=== PATIENT | female | born 1930 | race Two or more races ===

== ENCOUNTER 2017-09-12 21:30 | Inpatient (IN) | payer MEDICARE, OTHER ==
[~2017-09-12] VITALS: Ht 152.4 cm; Wt 82.1 kg
[~2017-09-12 21:30] MED LIST: ACET325T53 PO; ATOR10TA PO; CANA300T PO; ESCI10TA PO; FOLI1TAB16 PO; FURO-151 PO; ISOS60TA4 PO; MAGN400T6 PO; METF10002 PO; NEBI5TAB8 PO; RIVA10TA PO; SPIR25TA PO
--- NOTE | 2017-09-12 21:40 | NUR ---
Pt BIB ambulance for SOB. Hx of COPD. Placed on monitor and pulse ox. EKG completed. ER MD and RT at bedside.
--- NOTE | 2017-09-12 21:45 | NUR ---
Unable to reconcile pt's home medications, unable to obtain information from pt or EMS.
[2017-09-12 22:22] LABS: CARBON DIOXIDE 33 mmol/L (21-32); CHLORIDE 98 mmol/L (98-107); CREATININE 1.3 mg/dL (0.6-1.3); GLUCOSE 130 mg/dL (74-106); POTASSIUM 3.4 mmol/L (3.5-5.1); UREA NITROGEN, BLOOD 38 mg/dL (7-18)
[2017-09-12 22:26] LABS: BASOPHILS % (AUTO) 0.2 % (0.0-2.0); EOSINOPHILS # (AUTO) 0.1 K/uL (0.0-0.7); EOSINOPHILS % (AUTO) 1.3 % (0.0-7.0); HEMOGLOBIN 15.4 g/dL (10.9-14.3); LYMPHOCYTES # (AUTO) 1.9 K/uL (20.0-40.0); LYMPHOCYTES % (AUTO) 24.8 % (20.5-51.5); MEAN CORPUSCULAR HEMOGLOBIN 29.8 uug (24.7-32.8); MEAN CORPUSCULAR HGB CONC 34 g/dL (32.3-35.6); MONOCYTES # (AUTO) 0.4 K/uL (2.0-10.0); MONOCYTES % (AUTO) 5.3 % (0.0-11.0); NEUTROPHILS # (AUTO) 5.2 K/uL (1.8-8.9); NEUTROPHILS % (AUTO) 68.4 % (38.5-71.5); PLATELET COUNT (AUTO) 137 K/uL (179-408); RED BLOOD CELL COUNT(AUTO) 5.17 MIL/uL (3.63-4.92); WHITE BLOOD COUNT (AUTO) 7.6 K/uL (3.8-11.8)
[2017-09-12 22:36] LABS: ABG BASE EXCESS 5.3 mmol/L; ABG HCO3 33.1 mmol/L; ABG PCO2 61.9 mmHg (35.0-45.0); ABG PH 7.346 (7.350-7.450); ABG PO2 84.8 mmHg (75.0-100.0); ABG SITE RIGHT RADIAL; ABG TOTAL HEMOGLOBIN 14.9 G/dL (12.0-16.0); COHb 1.6 % (0.5-1.5); MetHb 0.2 % (0.0-1.5); O2Hb 94.5 % (94.0-97.0)
[2017-09-12 22:40] LABS: ALANINE AMINOTRANSFERASE 13 U/L (14-59); ALKALINE PHOSPHATASE 63 U/L (50-136); ASPARTATE AMINOTRANSFERASE 16 U/L (15-37); BILIRUBIN,DIRECT 0.2 mg/dL (0.0-0.2); BILIRUBIN,TOTAL 0.9 mg/dL (0.2-1.0); TOTAL PROTEIN, SERUM 7.5 g/dL (6.4-8.2)
--- NOTE | 2017-09-12 22:58 | NUR ---
Jeremiah carreno in [facility] - 09/12/17 at 2259 by WALTER Call placed to [facility], Dr. Viramontes will be paged.
--- NOTE | 2017-09-12 22:59 | NUR ---
Call placed to [facility], Dr. Bone will be paged.
[2017-09-12] MEDS ORDERED: FUROSEMIDE 20 MG/2 ML VIAL IV ONE (23:00)
[2017-09-12] MEDS ORDERED: FUROSEMIDE 40 MG/4 ML VIAL ONE (23:19)
--- NOTE | 2017-09-12 23:29 | NUR ---
ER speaking w/ Epic
[2017-09-13] VITALS (7 sets, daily range): BP systolic 110–151; BP diastolic 53–87
[2017-09-13] MEDS ORDERED: POTASSIUM CHLORIDE 20 MEQ TAB.PRT.SR PO ONE
[2017-09-13] MEDS ORDERED: POTASSIUM CHLORIDE 20 MEQ TAB.PRT.SR ONE (00:16)
[2017-09-13] MEDS ORDERED: CLONIDINE HCL 0.1 MG TABLET PO PRN (01:15)
[2017-09-13] MEDS ORDERED: MORPHINE SULFATE 2 MG/1 ML DISP.SYRIN IV PRN (01:15)
[2017-09-13] MEDS ORDERED: ACETAMINOPHEN 325 MG TABLET PO PRN (01:15)
[2017-09-13] MEDS ORDERED: ONDANSETRON 4 MG/2 ML VIAL IV PRN (01:15)
[2017-09-13 01:17] LABS: *BILIRUBIN,URIN NEGATIVE (NEGATIVE); *BLOOD, URINE 1+ (NEGATIVE); *CLARITY,URINE SLIGHTLY CLOUDY (CLEAR); *COLOR,URINE YELLOW (YELLOW); *KETONES,URINE NEGATIVE (NEGATIVE); *PROTEIN,URINE NEGATIVE (NEGATIVE); *UROBILINOGEN,URINE 0.2 E.U./dl (NORMAL); LEUKOCYTE ESTERASE ,URINE TRACE (NEGATIVE); NITRITE, URINE POSITIVE (NEGATIVE); PH,URINE 5.5 (5.0-8.0)
[2017-09-13 01:22] LABS: UGLUCOSE 2+ (NEGATIVE)
[2017-09-13 01:24] LABS: BACTERIA,URINE MANY /HPF (NONE SEEN); SQUAMOUS EPITHELIAL CELL,UR FEW /HPF (NONE SEEN)
--- NOTE | 2017-09-13 01:41 | NUR ---
Report given to Mary ALDANA.
[2017-09-13] MEDS: ALBUTEROL SULFATE 1.25 MG/3 ML NEBU NEB PRN ×2 (02:50→08:27)
[2017-09-13] MEDS ORDERED: ALBUTEROL SULFATE 1.25 MG/3 ML NEBU ONE (03:05)
--- NOTE | 2017-09-13 03:15 | NUR ---
RECEIVED PATIENT TO [facility] FLOOR [id number]. PATIENT LABORED BREATHING, DENIES PAIN, BUT STATES SHE HAS TROUBLE BREATHING. PAGED DR COFFEY AT [id number] PATIENT CONTINUES WITH SOB AND IS STRUGGLING TO BREATHE. WHEEZING THROUGHOUT. CURRENTLY IN HIGH FOWLERS AND OXYGEN AT 2LPM VIA NC. CONTINUOUS PULSE OX MONITORING AT THIS TIME. SATURATION BETWEEN 91-94%. DR COFFEY STATES TO JUST WAIT AND MONITOR PATIENT- NO NEW ORDERS.
[2017-09-13 06:56] LABS: ALANINE AMINOTRANSFERASE 9 U/L (14-59); ALKALINE PHOSPHATASE 59 U/L (50-136); ASPARTATE AMINOTRANSFERASE 16 U/L (15-37); BILIRUBIN,TOTAL 0.7 mg/dL (0.2-1.0); CARBON DIOXIDE 35 mmol/L (21-32); CHLORIDE 100 mmol/L (98-107); CHOLESTEROL 148 mg/dL (<200); CREATININE 1.2 mg/dL (0.6-1.3); GLUCOSE 94 mg/dL (74-106); HDL CHOLESTEROL 78 mg/dL (40-60); MAGNESIUM 2.1 mg/dL (1.8-2.4); PHOSPHOROUS 5.1 mg/dL (2.5-4.9); POTASSIUM 3.8 mmol/L (3.5-5.1); TOTAL PROTEIN, SERUM 7.2 g/dL (6.4-8.2); TRIGLYCERIDES 78 MG/DL (30-150); UREA NITROGEN, BLOOD 37 mg/dL (7-18)
[2017-09-13 06:57] LABS: THYROID STIMULATING HORMONE 2.891 mIU/mL (0.358-3.740)
--- NOTE | 2017-09-13 08:00 | NUR ---
PT RECEIVED IN BED WITH HOB ELEVATED ON 3 L OXYGEN VIA NC. WHEEZING AND CRACKLES NOTED PATIENT BREATHES. MONITORING FOR ANY SOB. RESIDENT RECEIVED BREATHING TX PER RT
[2017-09-13] MEDS: PANTOPRAZOLE SODIUM 40 MG TABLET.DR PO SCH (08:11)
[2017-09-13] MEDS ORDERED: ASPIRIN EC 81 MG TABLET.DR PO SCH (09:00)
[2017-09-13] MEDS ORDERED: FUROSEMIDE 20 MG/2 ML VIAL IV SCH (09:00)
[2017-09-13 09:43] LABS: BASOPHILS % (AUTO) 0.4 % (0.0-2.0); EOSINOPHILS # (AUTO) 0.1 K/uL (0.0-0.7); EOSINOPHILS % (AUTO) 0.8 % (0.0-7.0); HEMATOCRIT 42.6 % (31.2-41.9); HEMOGLOBIN 14.3 g/dL (10.9-14.3); LYMPHOCYTES # (AUTO) 0.7 K/uL (20.0-40.0); LYMPHOCYTES % (AUTO) 10.1 % (20.5-51.5); MEAN CORPUSCULAR HEMOGLOBIN 29.8 uug (24.7-32.8); MEAN CORPUSCULAR HGB CONC 34 g/dL (32.3-35.6); MEAN CORPUSCULAR VOLUME 88.6 fL (75.5-95.3); MONOCYTES # (AUTO) 0.4 K/uL (2.0-10.0); MONOCYTES % (AUTO) 5.1 % (0.0-11.0); NEUTROPHILS # (AUTO) 5.8 K/uL (1.8-8.9); NEUTROPHILS % (AUTO) 83.6 % (38.5-71.5); PLATELET COUNT (AUTO) 143 K/uL (179-408); RED BLOOD CELL COUNT(AUTO) 4.81 MIL/uL (3.63-4.92)
[2017-09-13] MEDS ORDERED: IPRATROPIUM BROMIDE 0.5 MG/2.5 ML NEBU NEB PRN (10:00)
[2017-09-13] MEDS ORDERED: CEFTRIAXONE 1 G in IV NORMAL SALINE 50 ML IV SCH (10:00)
[2017-09-13] MEDS ORDERED: DEXTROSE 50% 50 ML DISP.SYRIN IV PRN (10:15)
[2017-09-13] MEDS: BLOOD SUGAR DIAGNOSTIC 1 EACH STRIP VI SCH ×3 (11:39→20:55)
[2017-09-13] MEDS: CEFTRIAXONE 1 G in IV NORMAL SALINE 50 ML IV SCH (12:03)
[2017-09-13] MEDS ORDERED: GUAIFENESIN/DEXTROMETHORPHAN 5 ML UDC PO PRN (14:15)
[2017-09-13] MEDS ORDERED: LEVOFLOXACIN 500 MG/D5W 500 MG in PREMIXED 1 EACH IV SCH (14:30)
[2017-09-13] MEDS: methylPREDNISolone SOD SUCC 40 MG/ML VIAL IV SCH ×2 (15:30→21:00)
[2017-09-13] MEDS ORDERED: LEVOFLOXACIN 500 MG/D5W 500 MG in PREMIXED 1 EACH IV ONE (16:00)
[2017-09-13] MEDS ORDERED: NORMAL SALINE IV SCH (16:00)
[2017-09-13] MEDS ORDERED: AZITHROMYCIN IV SCH (16:00)
[2017-09-13] MEDS: INSULIN REGULAR, HUMAN 300 UNIT/3 ML VIAL SQ PRN ×2 (16:24→20:56)
[2017-09-13] MEDS: ALBUTEROL SULFATE 1.25 MG/3 ML NEBU NEB SCH ×2 (17:38→19:31)
[2017-09-13] MEDS: IPRATROPIUM BROMIDE 0.5 MG/2.5 ML NEBU NEB SCH ×2 (17:39→19:30)
--- NOTE | 2017-09-13 17:58 | NUR ---
RESIDENT BREATHING CLOSELY MONITORED- NO S/S ACUTE DISTRESS. NO COMPLAINTS OF PAIN. CLIENT IS STILL WHEEZING, BUT NO SOB AND NO DESATURATION NOTED.
[2017-09-13] MEDS ORDERED: ESCITALOPRAM OXALATE 10 MG TABLET PO SCH (18:00)
[2017-09-13] MEDS: DOCUSATE SODIUM 100 MG CAPSULE PO SCH (21:00)
[2017-09-13] MEDS: ATORVASTATIN 10 MG TABLET PO SCH (21:00)
[2017-09-14] VITALS (7 sets, daily range): BP systolic 94–133; BP diastolic 50–80
[2017-09-14] MEDS ORDERED: FUROSEMIDE 20 MG/2 ML VIAL IV SCH
[2017-09-14] MEDS: FUROSEMIDE 40 MG/4 ML VIAL IV SCH ×4 (00:55→18:46)
[2017-09-14] MEDS: methylPREDNISolone SOD SUCC 40 MG/ML VIAL IV SCH ×2 (05:34→20:32)
[2017-09-14] MEDS: PANTOPRAZOLE SODIUM 40 MG TABLET.DR PO SCH (06:39)
[2017-09-14 06:40] LABS: BASOPHILS % (AUTO) 0.1 % (0.0-2.0); LYMPHOCYTES # (AUTO) 0.4 K/uL (20.0-40.0); MEAN CORPUSCULAR VOLUME 88.3 fL (75.5-95.3); MONOCYTES # (AUTO) 0.1 K/uL (2.0-10.0); NEUTROPHILS # (AUTO) 4.1 K/uL (1.8-8.9)
[2017-09-14] MEDS: BLOOD SUGAR DIAGNOSTIC 1 EACH STRIP VI SCH ×4 (06:42→20:59)
[2017-09-14 06:52] LABS: HEMATOCRIT 45.1 % (31.2-41.9); HEMOGLOBIN 15.1 g/dL (10.9-14.3); LYMPHOCYTES % (AUTO) 7.9 % (20.5-51.5); MEAN CORPUSCULAR HEMOGLOBIN 29.6 uug (24.7-32.8); MEAN CORPUSCULAR HGB CONC 34 g/dL (32.3-35.6); MONOCYTES % (AUTO) 1.7 % (0.0-11.0); NEUTROPHILS % (AUTO) 90.3 % (38.5-71.5); PLATELET COUNT (AUTO) 157 K/uL (179-408)
[2017-09-14 06:53] LABS: ALANINE AMINOTRANSFERASE 15 U/L (14-59); ALKALINE PHOSPHATASE 63 U/L (50-136); ASPARTATE AMINOTRANSFERASE 12 U/L (15-37); BILIRUBIN,TOTAL 0.8 mg/dL (0.2-1.0); CARBON DIOXIDE 35 mmol/L (21-32); CHLORIDE 100 mmol/L (98-107); CREATININE 1.3 mg/dL (0.6-1.3); GLUCOSE 143 mg/dL (74-106); MAGNESIUM 2.2 mg/dL (1.8-2.4); PHOSPHOROUS 3.9 mg/dL (2.5-4.9); POTASSIUM 3.7 mmol/L (3.5-5.1); TOTAL PROTEIN, SERUM 7.5 g/dL (6.4-8.2); UREA NITROGEN, BLOOD 33 mg/dL (7-18)
[2017-09-14 06:55] LABS: WHITE BLOOD COUNT (AUTO) 4.6 K/uL (3.8-11.8)
--- NOTE | 2017-09-14 07:59 | NUR ---
RECEIVED SHIFT REPORT FROM CIRCULAR STUFFER NURSE. PATIENT IS FARSI SPEAKING ONLY, STABLE CONDITION, NO S/S OF DISTRESS. BED ALARM ON, CALL LIGHT WITHIN REACH, SIDE RAILS UP X2.
[2017-09-14] MEDS: ALBUTEROL SULFATE 1.25 MG/3 ML NEBU NEB SCH ×4 (08:03→20:35)
[2017-09-14] MEDS: IPRATROPIUM BROMIDE 0.5 MG/2.5 ML NEBU NEB SCH ×4 (08:03→20:35)
[2017-09-14] MEDS: ISOSORBIDE MONONITRATE 60 MG TAB.SR.24H PO SCH (08:32)
[2017-09-14] MEDS: MAGNESIUM OXIDE 400 MG TABLET PO SCH (08:33)
[2017-09-14] MEDS: SPIRONOLACTONE 25 MG TABLET PO SCH (08:33)
[2017-09-14] MEDS: FOLIC ACID 1 MG TABLET PO SCH (08:33)
[2017-09-14] MEDS: CEFTRIAXONE 1 G in IV NORMAL SALINE 50 ML IV SCH (08:34)
[2017-09-14] MEDS: BYSTOLIC 5 MG PO SCH (08:38)
[2017-09-14] MEDS ORDERED: BYSTOLIC 5 MG PO SCH (09:00)
[2017-09-14] MEDS ORDERED: Medication Not On Formulary EA (Nebivolol Hcl (Bystolic) 5 MG) PO SCH (09:00)
[2017-09-14] MEDS: INSULIN REGULAR, HUMAN 300 UNIT/3 ML VIAL SQ PRN ×2 (11:55→17:20)
[2017-09-14] MEDS ORDERED: POTASSIUM CHLORIDE 20 MEQ TAB.PRT.SR PO ONE (12:00)
[2017-09-14] MEDS ORDERED: Medication Not On Formulary EA (Canagliflozin (Invokana) 300 MG) PO SCH (13:30)
[2017-09-14] MEDS ORDERED: Medication Not On Formulary EA (Metformin Hcl 1,000 MG) PO SCH (17:00)
[2017-09-14] MEDS: METFORMIN HCL 500 MG TABLET PO SCH (17:31)
[2017-09-14] MEDS: RIVAROXABAN 15 MG TABLET PO SCH (17:36)
--- NOTE | 2017-09-14 17:45 | NUR ---
PATIENT RECEIVED LASIX 40 MG AT 1200. WAS NOTIFIED BY LEGAL COMPLIANCE OFFICER THAT SHE VOIDED 3 TIMES IN THE RESTROOM. PATIENT COMPLAINED OF DIFFICULTY URINATING AT THIS TIME. BLADDER SCAN COMPLETED AND SHOWED 385 CC. NOTIFIED AND ORDERED TO HAVE ELLISON INSERTED.
[2017-09-14] MEDS ORDERED: RIVAROXABAN 10 MG TABLET PO SCH (18:00)
--- NOTE | 2017-09-14 18:16 | NUR ---
PATIENT RESTING COMFORTABLY IN BED AND FINISHED DINNER. NO SOB NOTED. NO S/S OF DISTRESS AT THIS TIME. PENDING SPUTUM CULTURE. PATIENT HAS NOT BEEN ABLE TO COUGH UP SPUTUM. BLOOD SUGAR MANAGED. BLOOD PRESSURE MONITORED AND STABLE. PATIENT O2 SATURATION WNL THROUGHOUT SHIFT. PT CONSULT TOLERATED. BED ALARM ON, SIDE RAILS UP X2, BED IN LOCKED/LOW POSITION, CALL LIGHT WITHIN REACH.
--- NOTE | 2017-09-14 18:33 | NUR ---
ELLISON CATHETER SUCCESSFULLY INSERTED AND IN PLACE, SECURE.
--- NOTE | 2017-09-14 19:00 | NUR ---
RECEIVED PATIENT IN BED, ALERT ORIENTED, SPEAK FARSI, STAFF ABLE TO INTERPRET FOR THE PATIENT, NO SOB NO CHEST PAIN, RHYTHM SINUS RHYTHM AT THIS TIME, ELLISON CATH PATENT DRAINING WITH YELLOW MARTÍN COLOR URINE IN MODERATE AMOUNT, CONT TO MONITOR.
[2017-09-14] MEDS: ATORVASTATIN 10 MG TABLET PO SCH (20:31)
[2017-09-14] MEDS: DOCUSATE SODIUM 100 MG CAPSULE PO SCH (20:31)
[2017-09-14] MEDS: LEVOFLOXACIN 250MG /D5W 250 MG in PREMIXED 1 EACH IV SCH (20:31)
[2017-09-15 00:08] VITALS: BP 111/62
[2017-09-15] MEDS: FUROSEMIDE 40 MG/4 ML VIAL IV SCH ×4 (00:36→17:26)
[2017-09-15 04:00] VITALS: BP 98/47
[2017-09-15] MEDS: PANTOPRAZOLE SODIUM 40 MG TABLET.DR PO SCH (05:38)
[2017-09-15] MEDS: BLOOD SUGAR DIAGNOSTIC 1 EACH STRIP VI SCH ×4 (05:41→20:30)
[2017-09-15 06:05] LABS: BASOPHILS % (AUTO) 0.1 % (0.0-2.0); HEMATOCRIT 41.8 % (31.2-41.9); HEMOGLOBIN 14.3 g/dL (10.9-14.3); LYMPHOCYTES # (AUTO) 0.4 K/uL (20.0-40.0); LYMPHOCYTES % (AUTO) 5.8 % (20.5-51.5); MEAN CORPUSCULAR HGB CONC 34 g/dL (32.3-35.6); MEAN CORPUSCULAR VOLUME 87.7 fL (75.5-95.3); MONOCYTES # (AUTO) 0.2 K/uL (2.0-10.0); MONOCYTES % (AUTO) 2.9 % (0.0-11.0); NEUTROPHILS # (AUTO) 6.3 K/uL (1.8-8.9); NEUTROPHILS % (AUTO) 91.2 % (38.5-71.5); PLATELET COUNT (AUTO) 152 K/uL (179-408); RED BLOOD CELL COUNT(AUTO) 4.77 MIL/uL (3.63-4.92); WHITE BLOOD COUNT (AUTO) 6.9 K/uL (3.8-11.8)
[2017-09-15 06:20] LABS: CARBON DIOXIDE 33 mmol/L (21-32); CHLORIDE 102 mmol/L (98-107); CREATININE 1.2 mg/dL (0.6-1.3); GLUCOSE 132 mg/dL (74-106); MAGNESIUM 2.1 mg/dL (1.8-2.4); PHOSPHOROUS 3.6 mg/dL (2.5-4.9); POTASSIUM 3.5 mmol/L (3.5-5.1); UREA NITROGEN, BLOOD 49 mg/dL (7-18)
[2017-09-15] MEDS: IPRATROPIUM BROMIDE 0.5 MG/2.5 ML NEBU NEB SCH ×4 (07:05→19:53)
[2017-09-15] MEDS: ALBUTEROL SULFATE 1.25 MG/3 ML NEBU NEB SCH ×4 (07:05→19:53)
--- NOTE | 2017-09-15 07:15 | NUR ---
RECEIVED SHIFT REPORT FROM SDE NURSE. PATIENT IN STABLE CONDITION, NO S/S OF DISTRESS. BED IN LOCKED/LOW POSITION, SIDE RAILS UP X2, BED ALARM ON, CALL LIGHT WITHIN REACH. ELLISON CATHETER IN PLACE AND FLOWING WELL. SAFETY/ COMFORT WILL BE PROVIDED.
[2017-09-15] MEDS: MAGNESIUM OXIDE 400 MG TABLET PO SCH (08:08)
[2017-09-15] MEDS: ISOSORBIDE MONONITRATE 60 MG TAB.SR.24H PO SCH (08:08)
[2017-09-15] MEDS: FOLIC ACID 1 MG TABLET PO SCH (08:08)
[2017-09-15] MEDS: METFORMIN HCL 500 MG TABLET PO SCH ×2 (08:08→17:26)
[2017-09-15] MEDS: SPIRONOLACTONE 25 MG TABLET PO SCH (08:08)
[2017-09-15] MEDS: BYSTOLIC 5 MG PO SCH (08:10)
[2017-09-15] MEDS: INVOKANA 300 MG PO SCH (08:10)
[2017-09-15] MEDS: CEFTRIAXONE 1 G in IV NORMAL SALINE 50 ML IV SCH (08:11)
[2017-09-15] MEDS: methylPREDNISolone SOD SUCC 40 MG/ML VIAL IV SCH ×2 (08:13→20:26)
[2017-09-15] MEDS: INSULIN REGULAR, HUMAN 300 UNIT/3 ML VIAL SQ PRN ×2 (08:27→17:03)
[2017-09-15 11:28] VITALS: BP 110/67
[2017-09-15 15:16] VITALS: BP 106/60
--- NOTE | 2017-09-15 17:49 | NUR ---
PATIENT RESTING COMFORTABLY IN BED AT THIS TIME AFTER FINISHING DINNER. VITAL SIGNS HAVE BEEN STABLE. BLOOD SUGAR MANAGED. NO PAIN EXPRESSED BY PATIENT. ELLISON INTACT, IN PLACE, FLOWING WELL. DIURETICS ADMINISTERED AND BLOOD SUGAR MONITORED. NO S/S OF DISTRESS, STABLE CONDITION. BED IN LOCKED/LOW POSITION, SIDE RAILS UP X2, CALL LIGHT WITHIN REACH. PATIENT UNDERSTANDS HOW TO USE CALL LIGHT WHEN ASSISTANCE IS NEEDED.
[2017-09-15] MEDS: RIVAROXABAN 15 MG TABLET PO SCH (18:04)
--- NOTE | 2017-09-15 18:41 | NUR ---
RAPID RESPONSE CALLED AT 1806 DUE TO PT PRESENTING WITH SHORTNESS OF BREATHE WITH FACIAL FLUSHING, WAS UNABLE TO VERBALIZE ANYTHING BECAUSE OF THE SHORTNESS OF BREATH. VITAL SIGNS IMMEDIATELY TAKEN: BP 115/80; HR 105; O2SAT 93% 3L NC; RR 22; T 98.7. PATIENT PLACED ON THE ENVIRONMENTAL LABORATORY TECHNICIAN AND NO SIGNIFICANT FINDINGS. SHORTNESS OF BREATH BEGAN TO IMPROVE. RAPID RESPONSE ENDED AT 1813 AND VITAL SIGNS: BP 119/74; HR 108; O2SAT 95%; RR 18. LANGUAGE BARRIER - PATIENT FARSI SPEAKING ONLY. PATIENT CURRENTLY IN STABLE CONDITION, NO S/S OF RESPIRATORY DISTRESS. WILL INFORM CS ASSOCIATE NURSE OF OCCURRENCE AND TO CLOSELY MONITOR PATIENT.
--- NOTE | 2017-09-15 19:30 | NUR ---
PT RECEIVED IN BED, AWAKE. A/OX3. FARSI SPEAKING, ABLE TO MAKE NEEDS KNOWN. V/S STABLE. IN NO ACUTE DISTRESS. NO C/O PAIN AT THIS TIME. PT STATES IV SITE WAS SWOLLEN AND RED WITH IV INFUSION DURING DAYSHIFT. REMOVED IV. IV PLACEMENT PENDING AT THIS TIME. ON 3LNC, TOLERATING WELL. ELLISON INTACT AND PATENT. HOB ELEVATED. SAFETY MEASURES IMPLEMENTED. BED ALARM SET. CALL LIGHT WITHIN REACH.
[2017-09-15 20:00] VITALS: BP 102/55
[2017-09-15] MEDS: ATORVASTATIN 10 MG TABLET PO SCH (20:26)
[2017-09-15] MEDS: LEVOFLOXACIN 250MG /D5W 250 MG in PREMIXED 1 EACH IV SCH (20:26)
[2017-09-15] MEDS: DOCUSATE SODIUM 100 MG CAPSULE PO SCH (20:27)
--- NOTE | 2017-09-15 21:45 | NUR ---
UNABLE TO INSERT PERIPHERAL IV. AWARE. IV MEDICATIONS CHANGED TO PO
[2017-09-15] MEDS: LEVOFLOXACIN 250 MG TABLET PO SCH (21:58)
[2017-09-15] MEDS ORDERED: LEVOFLOXACIN 250 MG TABLET ONE (22:15)
[2017-09-15] MEDS: FUROSEMIDE 40 MG TABLET PO SCH (23:00)
[2017-09-15] MEDS ORDERED: FUROSEMIDE 40 MG TABLET ONE (23:15)
[2017-09-16 04:44] VITALS: BP 116/62
[2017-09-16 06:01] LABS: BASOPHILS % (AUTO) 0.1 % (0.0-2.0); EOSINOPHILS % (AUTO) 0.1 % (0.0-7.0); HEMATOCRIT 41.8 % (31.2-41.9); HEMOGLOBIN 14.2 g/dL (10.9-14.3); LYMPHOCYTES # (AUTO) 0.7 K/uL (20.0-40.0); LYMPHOCYTES % (AUTO) 10.1 % (20.5-51.5); MEAN CORPUSCULAR HEMOGLOBIN 29.7 uug (24.7-32.8); MEAN CORPUSCULAR HGB CONC 34 g/dL (32.3-35.6); MEAN CORPUSCULAR VOLUME 87.6 fL (75.5-95.3); MONOCYTES # (AUTO) 0.4 K/uL (2.0-10.0); MONOCYTES % (AUTO) 6.5 % (0.0-11.0); NEUTROPHILS # (AUTO) 5.4 K/uL (1.8-8.9); NEUTROPHILS % (AUTO) 83.2 % (38.5-71.5); PLATELET COUNT (AUTO) 156 K/uL (179-408); RED BLOOD CELL COUNT(AUTO) 4.77 MIL/uL (3.63-4.92); WHITE BLOOD COUNT (AUTO) 6.4 K/uL (3.8-11.8)
[2017-09-16] MEDS ORDERED: FUROSEMIDE 40 MG TABLET ONE (06:03)
[2017-09-16] MEDS: PANTOPRAZOLE SODIUM 40 MG TABLET.DR PO SCH (06:07)
[2017-09-16] MEDS: FUROSEMIDE 40 MG TABLET PO SCH (06:07)
--- NOTE | 2017-09-16 06:15 | NUR ---
END OF SHIFT NOTES. PT SLEPT WELL THROUGHOUT SHIFT. IN STABLE CONDITION. NO IV IN PLACE, MD AWARE. ELLISON INTACT AND PATENT. URINE OUTPUT WNL. BG CONTROLLED. HOB ELEVATED. ALL NEEDS ATTENDED. SAFETY MAINTAINED. CALL LIGHT WITHIN REACH.
[2017-09-16] MEDS: BLOOD SUGAR DIAGNOSTIC 1 EACH STRIP VI SCH ×4 (06:22→20:49)
--- NOTE | 2017-09-16 07:27 | NUR ---
LEVAQUIN WAS REMOVED FROM [facility] 07/16/18 AT 2215. LASIX REMOVED FROM [facility] 09/16/17 AT 0603.
[2017-09-16] MEDS: ALBUTEROL SULFATE 1.25 MG/3 ML NEBU NEB SCH ×4 (07:33→19:19)
[2017-09-16] MEDS: IPRATROPIUM BROMIDE 0.5 MG/2.5 ML NEBU NEB SCH ×4 (07:33→19:18)
[2017-09-16] MEDS: SPIRONOLACTONE 25 MG TABLET PO SCH (08:08)
[2017-09-16] MEDS: CEPHALEXIN MONOHYDRATE 500 MG CAPSULE PO SCH ×2 (08:09→20:45)
[2017-09-16] MEDS: INVOKANA 300 MG PO SCH (08:10)
[2017-09-16] MEDS: BYSTOLIC 5 MG PO SCH (08:10)
[2017-09-16] MEDS: MAGNESIUM OXIDE 400 MG TABLET PO SCH (08:10)
[2017-09-16] MEDS: METFORMIN HCL 500 MG TABLET PO SCH ×2 (08:10→17:01)
[2017-09-16] MEDS: FOLIC ACID 1 MG TABLET PO SCH (08:10)
[2017-09-16] MEDS: ISOSORBIDE MONONITRATE 60 MG TAB.SR.24H PO SCH (08:16)
[2017-09-16 08:48] LABS: ALANINE AMINOTRANSFERASE 12 U/L (14-59); ALKALINE PHOSPHATASE 41 U/L (50-136); ASPARTATE AMINOTRANSFERASE 9 U/L (15-37); BILIRUBIN,TOTAL 0.4 mg/dL (0.2-1.0); CARBON DIOXIDE 29 mmol/L (21-32); CHLORIDE 101 mmol/L (98-107); CREATININE 1.6 mg/dL (0.6-1.3); GLUCOSE 100 mg/dL (74-106); MAGNESIUM 2.3 mg/dL (1.8-2.4); PHOSPHOROUS 3.4 mg/dL (2.5-4.9); POTASSIUM 3.7 mmol/L (3.5-5.1); TOTAL PROTEIN, SERUM 6.6 g/dL (6.4-8.2); UREA NITROGEN, BLOOD 65 mg/dL (7-18)
[2017-09-16] MEDS: methylPREDNISolone SOD SUCC 40 MG/ML VIAL IV SCH ×2 (09:00→20:49)
--- NOTE | 2017-09-16 10:01 | NUR ---
unable to insert peripheral IV. Nurse practitioner notified. Order for midline obtained. nursing silverware supervisor notified.
--- NOTE | 2017-09-16 10:20 | NUR ---
MIDLINE INSERTED 20 GAUGE RIGHT UPPER ARM. PT SHOWS NO SIGNS OF RESPIRATORY DISTRESS AT THIS TIME. PT V/S STABLE.
--- NOTE | 2017-09-16 10:34 | NUR ---
RAFAELA PULLED FROM [facility] 09/15 AT [id number]
[2017-09-16 11:38] VITALS: BP 100/54
[2017-09-16] MEDS ORDERED: MIRALAX 17 GM POWD.PACK PO ONE (14:30)
[2017-09-16] MEDS ORDERED: MIRALAX 17 GM POWD.PACK PO PRN (14:30)
--- NOTE | 2017-09-16 15:06 | NUR ---
PT REFUSED MIRALAX B/C SHE VERBALIZED THAT SHE HAD "POOP" TODAY. PT DESCRIBES BM SMALL.
[2017-09-16 15:32] VITALS: BP 103/64
[2017-09-16] MEDS: RIVAROXABAN 15 MG TABLET PO SCH (17:04)
--- NOTE | 2017-09-16 18:29 | NUR ---
PT SHOWS NO SIGNS OF RESPIRATORY DISTRESS OR SOB. PT AMBULATED AROUND THE UNIT TODAY. PT BED AT LOWEST LOCKED POSITION, NON SKID SOCKS ON PT FEET. PT MEDICATION COMPLIANT. MIDLINE INSERTED 20 GAUGE IN RIGHT UPPER ARM, INTACT. PT HAD ONE SMALL BM AND REFUSED MIRALAX. CONTINUE TO MONITOR PT.
[2017-09-16 20:08] VITALS: BP 102/62
[2017-09-16] MEDS: LEVOFLOXACIN 250 MG TABLET PO SCH (20:48)
[2017-09-16] MEDS: DOCUSATE SODIUM 100 MG CAPSULE PO SCH (20:48)
[2017-09-16] MEDS: SENNOSIDES 1 TABLET PO SCH (20:48)
[2017-09-16] MEDS: ATORVASTATIN 10 MG TABLET PO SCH (20:48)
--- NOTE | 2017-09-16 23:04 | NUR ---
VENOUS DOPPLER OF BLE DONE AT BEDSIDE. PATIENT TOLERATE PROCEDURE WELL. NO DISTRESS NOTED. PT LAYING COMFORTABLY IN BED AT THIS TIME.
[2017-09-17 05:59] VITALS: BP 105/54
[2017-09-17 06:41] LABS: ALANINE AMINOTRANSFERASE 10 U/L (14-59); ALKALINE PHOSPHATASE 47 U/L (50-136); ASPARTATE AMINOTRANSFERASE 6 U/L (15-37); BILIRUBIN,TOTAL 0.5 mg/dL (0.2-1.0); CARBON DIOXIDE 33 mmol/L (21-32); CHLORIDE 101 mmol/L (98-107); CREATINE KINASE, TOTAL 20 U/L (26-192); GLUCOSE 132 mg/dL (74-106); MAGNESIUM 2.3 mg/dL (1.8-2.4); POTASSIUM 4.1 mmol/L (3.5-5.1); TOTAL PROTEIN, SERUM 6.6 g/dL (6.4-8.2)
[2017-09-17 06:49] LABS: HEMATOCRIT 43.5 % (31.2-41.9); HEMOGLOBIN 14.6 g/dL (10.9-14.3); LYMPHOCYTES # (AUTO) 0.4 K/uL (20.0-40.0); LYMPHOCYTES % (AUTO) 8.5 % (20.5-51.5); MEAN CORPUSCULAR HEMOGLOBIN 29.4 uug (24.7-32.8); MEAN CORPUSCULAR HGB CONC 34 g/dL (32.3-35.6); MEAN CORPUSCULAR VOLUME 87.7 fL (75.5-95.3); MONOCYTES # (AUTO) 0.2 K/uL (2.0-10.0); MONOCYTES % (AUTO) 3.5 % (0.0-11.0); NEUTROPHILS # (AUTO) 4.2 K/uL (1.8-8.9); PLATELET COUNT (AUTO) 148 K/uL (179-408); RED BLOOD CELL COUNT(AUTO) 4.96 MIL/uL (3.63-4.92)
[2017-09-17] MEDS: PANTOPRAZOLE SODIUM 40 MG TABLET.DR PO SCH (06:50)
[2017-09-17] MEDS: BLOOD SUGAR DIAGNOSTIC 1 EACH STRIP VI SCH ×4 (06:52→21:06)
[2017-09-17 07:00] LABS: UREA NITROGEN, BLOOD 57 mg/dL (7-18)
[2017-09-17 07:01] LABS: CREATININE 1.3 mg/dL (0.6-1.3)
[2017-09-17 07:04] LABS: WHITE BLOOD COUNT (AUTO) 4.7 K/uL (3.8-11.8)
[2017-09-17] MEDS: IPRATROPIUM BROMIDE 0.5 MG/2.5 ML NEBU NEB SCH ×4 (07:18→19:10)
[2017-09-17] MEDS: ALBUTEROL SULFATE 1.25 MG/3 ML NEBU NEB SCH ×4 (07:18→19:10)
[2017-09-17] MEDS: CEPHALEXIN MONOHYDRATE 500 MG CAPSULE PO SCH ×2 (08:00→21:06)
[2017-09-17] MEDS: METFORMIN HCL 500 MG TABLET PO SCH ×2 (08:00→17:40)
[2017-09-17] MEDS: FOLIC ACID 1 MG TABLET PO SCH (08:00)
[2017-09-17] MEDS: methylPREDNISolone SOD SUCC 40 MG/ML VIAL IV SCH (08:00)
[2017-09-17] MEDS: INVOKANA 300 MG PO SCH (08:01)
[2017-09-17] MEDS: SPIRONOLACTONE 25 MG TABLET PO SCH (08:01)
[2017-09-17] MEDS: MAGNESIUM OXIDE 400 MG TABLET PO SCH (08:01)
[2017-09-17] MEDS: ISOSORBIDE MONONITRATE 60 MG TAB.SR.24H PO SCH (08:01)
[2017-09-17] MEDS: BYSTOLIC 5 MG PO SCH (08:01)
[2017-09-17] MEDS: FUROSEMIDE 40 MG TABLET PO SCH ×2 (09:31→17:40)
[2017-09-17 11:26] VITALS: BP 103/65
[2017-09-17] MEDS: INSULIN REGULAR, HUMAN 300 UNIT/3 ML VIAL SQ PRN ×3 (12:08→21:10)
[2017-09-17 15:38] VITALS: BP 116/59
[2017-09-17] MEDS ORDERED: FUROSEMIDE 40 MG TABLET PO SCH (17:00)
[2017-09-17] MEDS: RIVAROXABAN 15 MG TABLET PO SCH (17:41)
--- NOTE | 2017-09-17 18:38 | NUR ---
PT SITTING IN ROOM, FAMILY AT BEDSIDE. PT SHOWS NO SIGNS OF DISTRESS, SOB, OR PAIN. PT ELLISON CATHETER WAS DISCONTINUED TODAY PER KATHERYN Bravo. PT HAS URINATED 2 TIMES SINCE ELLISON CATHETER REMOVAL.
[2017-09-17 20:24] VITALS: BP 128/75
[2017-09-17] MEDS: DOCUSATE SODIUM 100 MG CAPSULE PO SCH (21:06)
[2017-09-17] MEDS: LACTOBACILLUS RHAMNOSUS GG 1 EACH CAPSULE PO SCH (21:06)
[2017-09-17] MEDS: ATORVASTATIN 10 MG TABLET PO SCH (21:06)
[2017-09-17] MEDS: SENNOSIDES 1 TABLET PO SCH (21:06)
[2017-09-17] MEDS: LEVOFLOXACIN 250 MG TABLET PO SCH (21:06)
[2017-09-18 04:33] VITALS: BP 122/65
[2017-09-18] MEDS: PANTOPRAZOLE SODIUM 40 MG TABLET.DR PO SCH (06:11)
--- NOTE | 2017-09-18 06:38 | NUR ---
PATIENT LAYING IN BED AT THIS TIME. COMPLIANT WITH MEDICATIONS. BLOOD SUGAR WITHIN DESIRED RANGE. PATIENT IS HOPEFUL FOR DISCHARGE TODAY. CURRENTLY ON 1L O2 VIA NC. DENIES CHEST PAIN OR SOB. SLEPT THROUGHOUT THE NIGHT WITHOUT INCIDENT. ABLE TO USE CALL LIGHT FOR ASSISTANCE. BED LOCKED AND IN LOW POSITION WITH CALL LIGHT WITHIN REACH.
[2017-09-18] MEDS: BLOOD SUGAR DIAGNOSTIC 1 EACH STRIP VI SCH ×4 (06:49→21:36)
[2017-09-18 06:54] LABS: ALANINE AMINOTRANSFERASE 9 U/L (14-59); ALKALINE PHOSPHATASE 42 U/L (50-136); ASPARTATE AMINOTRANSFERASE 8 U/L (15-37); BILIRUBIN,TOTAL 0.6 mg/dL (0.2-1.0); CARBON DIOXIDE 33 mmol/L (21-32); CHLORIDE 100 mmol/L (98-107); CREATININE 1.5 mg/dL (0.6-1.3); GLUCOSE 101 mg/dL (74-106); MAGNESIUM 1.9 mg/dL (1.8-2.4); PHOSPHOROUS 3.1 mg/dL (2.5-4.9); POTASSIUM 3.4 mmol/L (3.5-5.1); TOTAL PROTEIN, SERUM 6.5 g/dL (6.4-8.2)
[2017-09-18 07:05] LABS: BASOPHILS % (AUTO) 0.1 % (0.0-2.0); EOSINOPHILS % (AUTO) 0.4 % (0.0-7.0); HEMOGLOBIN 14.3 g/dL (10.9-14.3); LYMPHOCYTES # (AUTO) 0.8 K/uL (20.0-40.0); LYMPHOCYTES % (AUTO) 16.1 % (20.5-51.5); MEAN CORPUSCULAR HEMOGLOBIN 29.3 uug (24.7-32.8); MEAN CORPUSCULAR HGB CONC 33 g/dL (32.3-35.6); MEAN CORPUSCULAR VOLUME 87.8 fL (75.5-95.3); MONOCYTES # (AUTO) 0.4 K/uL (2.0-10.0); MONOCYTES % (AUTO) 8.3 % (0.0-11.0); NEUTROPHILS # (AUTO) 3.8 K/uL (1.8-8.9); NEUTROPHILS % (AUTO) 75.1 % (38.5-71.5); PLATELET COUNT (AUTO) 149 K/uL (179-408)
[2017-09-18 07:24] LABS: UREA NITROGEN, BLOOD 50 mg/dL (7-18)
[2017-09-18] MEDS: ALBUTEROL SULFATE 1.25 MG/3 ML NEBU NEB SCH ×4 (08:09→19:27)
[2017-09-18] MEDS: IPRATROPIUM BROMIDE 0.5 MG/2.5 ML NEBU NEB SCH ×4 (08:09→19:27)
[2017-09-18] MEDS: ISOSORBIDE MONONITRATE 60 MG TAB.SR.24H PO SCH (09:00)
--- NOTE | 2017-09-18 09:00 | NUR ---
awake alert and oriented, speaks Farsi, denies of pain, on 1l/nc, call light within reach
[2017-09-18] MEDS: methylPREDNISolone SOD SUCC 40 MG/ML VIAL IV SCH (09:08)
[2017-09-18] MEDS: LACTOBACILLUS RHAMNOSUS GG 1 EACH CAPSULE PO SCH ×2 (09:08→21:30)
[2017-09-18] MEDS: SPIRONOLACTONE 25 MG TABLET PO SCH (09:08)
[2017-09-18] MEDS: FOLIC ACID 1 MG TABLET PO SCH (09:08)
[2017-09-18] MEDS: METFORMIN HCL 500 MG TABLET PO SCH ×2 (09:08→17:32)
[2017-09-18] MEDS: FUROSEMIDE 40 MG TABLET PO SCH ×2 (09:09→17:32)
[2017-09-18] MEDS: CEPHALEXIN MONOHYDRATE 500 MG CAPSULE PO SCH ×2 (09:09→21:30)
[2017-09-18] MEDS: MAGNESIUM OXIDE 400 MG TABLET PO SCH (09:10)
[2017-09-18] MEDS: INVOKANA 300 MG PO SCH (09:11)
[2017-09-18] MEDS ORDERED: POTASSIUM CHLORIDE 20 MEQ TAB.PRT.SR PO ONE (10:30)
[2017-09-18 10:49] VITALS: BP 119/50
[2017-09-18 12:19] LABS: *BILIRUBIN,URIN NEGATIVE (NEGATIVE); *BLOOD, URINE 3+ (NEGATIVE); *CLARITY,URINE CLEAR (CLEAR); *COLOR,URINE YELLOW (YELLOW); *KETONES,URINE NEGATIVE (NEGATIVE); *PROTEIN,URINE NEGATIVE (NEGATIVE); *UROBILINOGEN,URINE 0.2 E.U./dl (NORMAL); LEUKOCYTE ESTERASE ,URINE NEGATIVE (NEGATIVE); NITRITE, URINE NEGATIVE (NEGATIVE); PH,URINE 5.5 (5.0-8.0)
[2017-09-18 12:22] LABS: UGLUCOSE 2+ (NEGATIVE)
[2017-09-18] MEDS: INSULIN REGULAR, HUMAN 300 UNIT/3 ML VIAL SQ PRN ×2 (12:29→17:34)
[2017-09-18 12:52] LABS: BACTERIA,URINE FEW /HPF (NONE SEEN); RBC,URINE 20-50 /HPF (0-3); SQUAMOUS EPITHELIAL CELL,UR FEW /HPF (NONE SEEN)
[2017-09-18 12:54] LABS: *CREATININE,URINE 23.9 mg/dL (30-125); *URINE TOTAL PROTEIN RANDOM 9.1 mg/dL (<150/24HR)
--- NOTE | 2017-09-18 14:00 | NUR ---
no BM for 2 days- given laxative as ordered, ambulated in the hallway with walker
[2017-09-18] MEDS ORDERED: methylPREDNISolone 1 PACK TAB.DS.PK [4MG TAB] PO ONE (14:15)
[2017-09-18] MEDS ORDERED: BISACODYL 5 MG TABLET.DR PO ONE (14:15)
[2017-09-18 15:32] VITALS: BP 107/71
[2017-09-18] MEDS: RIVAROXABAN 15 MG TABLET PO SCH (17:33)
--- NOTE | 2017-09-18 19:00 | NUR ---
no distress noted, all needs attended and met, call light within reach, had BM this shift
[2017-09-18 20:10] VITALS: BP 111/64
[2017-09-18] MEDS: ATORVASTATIN 10 MG TABLET PO SCH (21:30)
[2017-09-18] MEDS: DOCUSATE SODIUM 100 MG CAPSULE PO SCH (21:30)
[2017-09-18] MEDS: SENNOSIDES 1 TABLET PO SCH (21:31)
[2017-09-19] MEDS: PANTOPRAZOLE SODIUM 40 MG TABLET.DR PO SCH (06:04)
[2017-09-19 06:30] VITALS: BP 110/75
--- NOTE | 2017-09-19 06:44 | NUR ---
PT SLEPT THROUGHOUT THE SHIFT, PT SHOWS NO SIGNS OF DISTRESS. PT VITAL SIGNS WITHIN NORMAL LIMIT. CALL LIGHT WITHIN REACH . BED ALARM ON AND IN LOW POSITION. ALL PRESCRIBED MEDICATION GIVEN TO THE PT. PT TOLERATED WELL THE MEDICATION. SAFETY AND COMFORT PROVIDED.
[2017-09-19] MEDS: BLOOD SUGAR DIAGNOSTIC 1 EACH STRIP VI SCH ×2 (06:52→11:32)
[2017-09-19 07:12] LABS: BASOPHILS % (AUTO) 0.1 % (0.0-2.0); EOSINOPHILS % (AUTO) 0.7 % (0.0-7.0); HEMATOCRIT 44.2 % (31.2-41.9); HEMOGLOBIN 14.9 g/dL (10.9-14.3); LYMPHOCYTES % (AUTO) 19.1 % (20.5-51.5); MEAN CORPUSCULAR HEMOGLOBIN 29.5 uug (24.7-32.8); MEAN CORPUSCULAR HGB CONC 34 g/dL (32.3-35.6); MEAN CORPUSCULAR VOLUME 87.7 fL (75.5-95.3); MONOCYTES # (AUTO) 0.4 K/uL (2.0-10.0); MONOCYTES % (AUTO) 7.4 % (0.0-11.0); NEUTROPHILS % (AUTO) 72.7 % (38.5-71.5); PLATELET COUNT (AUTO) 134 K/uL (179-408); RED BLOOD CELL COUNT(AUTO) 5.04 MIL/uL (3.63-4.92); WHITE BLOOD COUNT (AUTO) 5.5 K/uL (3.8-11.8)
[2017-09-19] MEDS: IPRATROPIUM BROMIDE 0.5 MG/2.5 ML NEBU NEB SCH ×4 (07:18→14:51)
[2017-09-19] MEDS: ALBUTEROL SULFATE 1.25 MG/3 ML NEBU NEB SCH ×4 (07:18→14:51)
[2017-09-19 07:44] LABS: ALANINE AMINOTRANSFERASE 11 U/L (14-59); ALKALINE PHOSPHATASE 40 U/L (50-136); ASPARTATE AMINOTRANSFERASE < 5 U/L (15-37); BILIRUBIN,TOTAL 0.5 mg/dL (0.2-1.0); CARBON DIOXIDE 33 mmol/L (21-32); CHLORIDE 100 mmol/L (98-107); CREATININE 1.3 mg/dL (0.6-1.3); GLUCOSE 93 mg/dL (74-106); MAGNESIUM 1.9 mg/dL (1.8-2.4); PHOSPHOROUS 3.2 mg/dL (2.5-4.9); POTASSIUM 3.7 mmol/L (3.5-5.1); TOTAL PROTEIN, SERUM 6.3 g/dL (6.4-8.2); UREA NITROGEN, BLOOD 51 mg/dL (7-18)
[2017-09-19 08:14] LABS: ABG BASE EXCESS 8.2 mmol/L; ABG HCO3 33.2 mmol/L; ABG PCO2 46.4 mmHg (35.0-45.0); ABG PH 7.472 (7.350-7.450); ABG PO2 49.9 mmHg (75.0-100.0); ABG SITE RIGHT RADIAL; ABG TOTAL HEMOGLOBIN 15.3 G/dL (12.0-16.0); COHb 1.9 % (0.5-1.5); MetHb 0.1 % (0.0-1.5); O2Hb 84.6 % (94.0-97.0); VENT MODE Nasal Cannula
[2017-09-19] MEDS: CEPHALEXIN MONOHYDRATE 500 MG CAPSULE PO SCH (08:16)
[2017-09-19] MEDS: LACTOBACILLUS RHAMNOSUS GG 1 EACH CAPSULE PO SCH (08:16)
[2017-09-19] MEDS: METFORMIN HCL 500 MG TABLET PO SCH (08:16)
[2017-09-19] MEDS: SPIRONOLACTONE 25 MG TABLET PO SCH (08:17)
[2017-09-19] MEDS: FOLIC ACID 1 MG TABLET PO SCH (08:17)
[2017-09-19] MEDS: MAGNESIUM OXIDE 400 MG TABLET PO SCH (08:17)
[2017-09-19] MEDS: FUROSEMIDE 40 MG TABLET PO SCH (08:17)
[2017-09-19] MEDS: methylPREDNISolone SOD SUCC 40 MG/ML VIAL IV SCH (08:17)
[2017-09-19] MEDS: ISOSORBIDE MONONITRATE 60 MG TAB.SR.24H PO SCH (08:18)
[2017-09-19] MEDS: INVOKANA 300 MG PO SCH (09:23)
[2017-09-19 10:12] LABS: A/G RATIO 1.3 (0.7-1.7); ALBUMIN 3.5 g/dL (2.9-4.4); ALPHA-1-GLOBULIN 0.2 g/dL (0.0-0.4); ALPHA-2-GLOBULIN 0.9 g/dL (0.4-1.0); BETA GLOBULIN 0.9 g/dL (0.7-1.3); GAMMA GLOBULIN 0.7 g/dL (0.4-1.8); GLOBULIN, TOTAL 2.7 g/dL (2.2-3.9); M-SPIKE Not Observed g/dL (Not Observed)
[2017-09-19 10:41] VITALS: BP 106/62
[2017-09-19] MEDS ORDERED: METH4TAB21 GT (13:55)
[2017-09-19] MEDS ORDERED: CEPH500C2 PO (13:55)
[2017-09-19] MEDS ORDERED: LACT1CAP57 PO (13:55)
[2017-09-19] MEDS ORDERED: DOCU100C36 PO (13:55)
[2017-09-19] MEDS ORDERED: FURO40TA5 PO (13:55)
--- NOTE | 2017-09-19 15:14 | NUR ---
Patient being discharge home with . Patient has [employer] P: [phone], F: [phone]. Inna is the pet supplies salesperson. MD discharging patient home with [facility]: 02 patient already has at home and PT Evaluation. Patient will follow up with PCP in one week.
[2017-09-19 15:17] VITALS: BP 105/62
--- NOTE | 2017-09-19 15:47 | NUR ---
PT D/C WITH SHOWS NO SIGNS OF RESPIRATORY DISTRESS OR SOB.OXYGEN SATURATION OF 95% ON ROOM AIR. PT MIDLINE REMOVED. CIRCUMFERENCE OF ARM 1 INCH ABOVE INSERTION AREA IS 24 INCHES. MIDLINE CATHETER INTACT, REMOVED COMPLETELY. PT D/C WITH ALL VALUABLES, BELONGINGS, EXIT-CARE PACKET, AND HOME MEDICATIONS. PT STATES, " WE HAVE OXYGEN AT HOME".
[2017-09-19 16:18] VITALS: BP 105/62
== END 2017-09-19 15:47 | disposition home or self-care (01) | DRG 698 ==
LOC: ER 21:31 → TELE 09-13 01:45 → MED 09-15 13:05
PROVIDERS: ADMIT Internal Medicine; ATTEND Internal Medicine
PROC: 05H533Z Insertion of Infusion Device into Right Subclavian Vein, Percutaneous Approach (ICD-10-PCS; principal; 2017-09-16)
DX: E11.22 Type 2 diabetes mellitus with diabetic chronic kidney disease (principal); I50.33 Acute on chronic diastolic (congestive) heart failure; J96.21 Acute and chronic respiratory failure with hypoxia; N17.0 Acute kidney failure with tubular necrosis; E44.0 Moderate protein-calorie malnutrition; E11.65 Type 2 diabetes mellitus with hyperglycemia; D69.6 Thrombocytopenia, unspecified; D75.1 Secondary polycythemia; I48.2 Chronic atrial fibrillation; J96.22 Acute and chronic respiratory failure with hypercapnia; N39.0 Urinary tract infection, site not specified; J44.0 Chronic obstructive pulmonary disease with (acute) lower respiratory infection; I13.0 Hypertensive heart and chronic kidney disease with heart failure and stage 1 through stage 4 chronic kidney disease, or unspecified chronic kidney disease; J44.1 Chronic obstructive pulmonary disease with (acute) exacerbation; E83.39 Other disorders of phosphorus metabolism; I07.1 Rheumatic tricuspid insufficiency; I27.20 Pulmonary hypertension, unspecified; E66.9 Obesity, unspecified; E78.5 Hyperlipidemia, unspecified; N18.2 Chronic kidney disease, stage 2 (mild); Z79.84 Long term (current) use of oral hypoglycemic drugs; Z79.01 Long term (current) use of anticoagulants; Z87.891 Personal history of nicotine dependence; M19.90 Unspecified osteoarthritis, unspecified site; Z68.35 Body mass index [BMI] 35.0-35.9, adult; T38.0X5A Adverse effect of glucocorticoids and synthetic analogues, initial encounter; Y92.89 Other specified places as the place of occurrence of the external cause; I77.810 Thoracic aortic ectasia; Z79.899 Other long term (current) drug therapy; J20.9 Acute bronchitis, unspecified; B96.20 Unspecified Escherichia coli [E. coli] as the cause of diseases classified elsewhere; E87.6 Hypokalemia; Z90.710 Acquired absence of both cervix and uterus; K59.00 Constipation, unspecified
CPT/HCPCS: 36415; 36569; 36600; 70030-TC; 71045; 83605; 83735; 83970; 84100; 84155; 84156; 84165; 84300; 84443; 85025; 85730; 87040; 87077; 87086; 87400; 93005; 93307; 94640; 94664; A4663; J0456; J0696; J1815; J1940; J1956; J2920; J3490; J3590; J7050